=== PATIENT | male | born 1955 | race Caucasian/White ===

== ENCOUNTER 2018-06-08 13:32 | Inpatient (IN) ==
--- NOTE | 2018-06-08 20:41 | ED ---
HPI General Chief Complaint: Extremity Injury, Upper Stated Complaint: Hand Complaint/Doctor Sent Time Seen by Provider: 06/08/18 20:22 Source: patient Mode of arrival: ambulatory Limitations: no limitations History of Present Illness HPI narrative: 63-year-old [id number] white male presents emergency department with an infection to his left middle finger which occurred on Tuesday after he cut his finger with a band saw. The patient lives in [place] as well as [facility]. The patient has not been traveling to [place] over the last several days. He states that his middle finger has become increasingly painful. He states that he can barely move his hand because the pain is so severe. It has opened and started draining pus. Has become increasingly painful, red and swollen. He denies any numbness or tingling. He went to an urgent care a few hours prior to arriving here at the hospital. He was given tetanus immunization as well as a shot of clindamycin 600 mg IM. He was advised to come to the ER. He had an x-ray performed which showed no obvious fracture. No foreign body. The patient states the pain is severe. Rates it a 10/10. Worse with movement and palpation. Some relief with elevation. Patient denies any fever or chills. Positive drainage. Related Data Home Medications Medication Instructions Recorded Confirmed benazepril-hydrochlorothiazide 1 tab PO DAILY 06/08/18 06/08/18 Allergies Allergy/AdvReac Type Severity Reaction Status Date / Time No Known Allergies Allergy Verified 06/08/18 20:17 Review of Systems ROS: all other systems reviewed are negative [facility] Medical History Medical History Hypertension (Acute) Sleep apnea (Acute) Surgical History Surgical History H/O cervical spine surgery (Acute) Social History Social History Substance History: No History of Abuse Second Hand Smoke Exposure: Yes Smoking Status: Heavy tobacco smoker Tobacco Type: Cigarettes How Often Do You Have a Drink Containing Alcohol: 4 or more times a week Recent Out of Country Travel within the Last 8 Weeks: No Immunization History Tetanus Immunization: <5 Years Exam Narrative Exam Narrative: GENERAL: Well-developed, well-nourished in no acute distress. Nontoxic appearing. HEAD: Normocephalic, atraumatic. EYES: Pupils equal round and reactive. Extraocular motions intact. No scleral icterus. No injection or drainage. ENT: TMs clear without erythema. The external auditory canals clear. Nose: clear . Posterior pharynx is pink and moist. No tonsillar edema or exudate. Uvula midline. Airway patent. NECK: Trachea midline.Supple, nontender, moves head freely. No central bony tenderness or spasm. CARDIOVASCULAR: Regular rate and rhythm without murmurs, gallops, or rubs. RESPIRATORY: Clear to auscultation. Breath sounds equal bilaterally. No wheezes , rales, or rhonchi. GASTROINTESTINAL: Abdomen soft, non-tender, nondistended. No hepato-splenomegaly , or palpable masses. No guarding. EXTREMITIES: No clubbing, cyanosis, examination of the left hand reveals moderately swollen middle finger from the MCP down to the distal phalanx. He has a 1.5 cm laceration over the dorsal distal interphalangeal joint. The patient has significant pain with palpation and is unable to move the joint due to pain. He has limited range of motion at the PIP. Patient has intact sensation with good cap refill. The finger is warm, and erythematous. BACK: Nontender without deformity or crepitance. No flank tenderness. Course Initial Documented Vital Signs Temperature 98.9 F 06/08/18 13:39 Pulse Rate 67 06/08/18 13:39 Respiratory Rate 17 06/08/18 13:39 Blood Pressure 112/74 06/08/18 13:39 Pulse Oximetry 96 06/08/18 13:39 Last Documented Vital Signs Temperature 98.9 F 06/08/18 13:39 Pulse Rate 67 06/08/18 13:39 Respiratory Rate 17 06/08/18 13:39 Blood Pressure 112/74 06/08/18 13:39 Pulse Oximetry 96 06/08/18 13:39 Medical Decision Making MDM Narrative Medical decision making narrative: IV access is obtained. Patient is given vancomycin 1 g IV. Zosyn 4.5 g IV every 6 hours. Will obtain routine laboratory tests including CBC, chemistry and x-ray of the finger. I spoke with Dr. Amaya who has agreed to be the life skills consultant. He has recommended Vanco and Zosyn and he will see the patient in the morning. He wants him n.p.o. after midnight. He would like to consult put in so he will get the patient demographic. Have the patient admitted to the medicine service. I have spoken with Dr. Recio who has agreed to admit the patient and placed the consult and continue Vanco and Zosyn. Medical Screen Exam Complete: Yes Emergency Medical Condition: Yes Differential Diagnosis Differential Diagnosis: Septic joint, abscess, cellulitis, Imaging Data Radiologist's impression: Finger X-Ray 06/08/18 20:31 CONCLUSION: No acute bony abnormality. Osteoarthritis of interphalangeal joints. Mild soft tissue swelling. Discharge Plan Discharge Disposition Patient Disposition: 30 Still Patient Discharge Condition Condition: Stable Physicians Team ED Provider: Johnson Ruiz ED Midlevel Provider: Bret Elias Rxs /Orders / Referrals /Forms Prescriptions: No Action benazepril-hydrochlorothiazide 10-12.5 mg Tablet 1 tab PO DAILY RF: 0 Discharge Interventions Interventions: Vital Signs Last Done: 06/08/18 13:39 Status ED Status: With Doctor
[2018-06-08] MEDS ORDERED: Piperacil/Tazo 4.5 GM Premix 4.5 GM/100 ML BAG IV.SIG SCH (20:45)
--- NOTE | 2018-06-08 20:58 | XR ---
EXAM DATE: 06/08/2018 8:31 PM EDT AGE/SEX: 63 years / Male INDICATIONS: Left 3rd digit laceration. CLINICAL DATA: This is the patient's initial encounter. Patient reports that signs and symptoms have been present for 4 - 6 days and indicates a pain score of 10/10. MEDICAL/SURGICAL HISTORY: None. None. COMPARISON: No prior exams available for comparison. FINDINGS: Bony structures are intact and in normal alignment. There is moderate osteoarthritis of the interphal angeal joints. Mild soft tissue swelling at the third digit. CONCLUSION: No acute bony abnormality. Osteoarthritis of interphalangeal joints. Mild soft tissue swelling. Electronically signed by: Bret Martinez MD 06/08/2018 8:57 PM EDT
[2018-06-08] MEDS ORDERED: Vancomycin Inj 1 GM/200 ML PIGGYBACK IV.SIG SCH (21:00)
[2018-06-08] MEDS ORDERED: Morphine Inj 4 MG, Morphine Inj 2 MG IV.PUSH ONE ×2 (21:10)
[2018-06-08 21:42] LABS: Baso # (Auto) 0.1 th/mm3 (0.0-0.2); Baso % (Auto) 0.6 % (0.0-2.0); Eos # (Auto) 0.1 th/mm3 (0.0-0.4); Eos % (Auto) 1.2 % (0.0-4.0); Hematocrit 40.7 % (39.0-51.0); Hemoglobin 14.1 gm/dL (13.0-17.0); Lymph # (Auto) 1.4 th/mm3 (1.0-4.8); Lymph % (Auto) 13.9 % (9.0-44.0); Mean Corpuscular HGB Conc 34.7 % (32.0-36.0); Mean Corpuscular Hemoglobin 32.1 pg (27.0-34.0); Mean Corpuscular Volume 92.4 fL (80.0-100.0); Mean Platelet Volume 8.6 fL (7.0-11.0); Mono # (Auto) 0.9 th/mm3 (0.0-0.9); Mono % (Auto) 8.7 % (0.0-8.0); Neut # (Auto) 7.8 th/mm3 (1.8-7.7); Neut % (Auto) 75.6 % (16.0-70.0); Platelet Count 349 th/mm3 (150-450); Red Blood Count 4.41 mil/mm3 (4.50-5.90); Red Cell Distribution Width 13.1 % (11.6-17.2); White Blood Count 10.3 th/mm3 (4.0-11.0)
[2018-06-08 21:59] LABS: Calcium 9.2 mg/dL (8.5-10.1); Carbon Dioxide 26.3 meq/L (21.0-32.0); Potassium 3.9 meq/L (3.5-5.1)
[2018-06-08] MEDS ORDERED: Vancomycin Inj 1,000 MG in Sodium Chlor 0.9% Inj 250 ML IV.SIG ONE (22:00)
[2018-06-08] MEDS ORDERED: Acetaminophen 325 MG Tablet PO PRN (22:48)
[2018-06-08] MEDS ORDERED: Bisacodyl 10 MG Supp RECTAL PRN (22:48)
[2018-06-08] MEDS ORDERED: Vancomycin Consult Pharmacy OTHER PRN (22:53)
--- NOTE | 2018-06-08 22:54 | P.HP ---
History of Present Illness Service: [facility] Primary Care Physician: UNKNOWN History of Present Illness: 63-year-old male with a past medical history significant for hypertension presents to the emergency department for evaluation of a left middle finger that is swollen and painful. The patient reports on Tuesday he cut it on a band saw in [place] where he lives. He denies any fever/chills since that time. He reports he cleaned the wound with hydrogen peroxide but since that time he has had increased redness and pain with almost complete inability to flex or extend the finger. He denies any chest pain or shortness of breath. No abdominal pain. No nausea/vomiting/diarrhea. No lateralizing signs/ symptoms. Review of Systems All other systems reviewed negative except as stated in [facility] - History History Provided By: Patient - Medical History Medical History: Medical History (Last Reviewed 06/08/18 @ 22:51 by Lisette Recio MD) Hypertension Sleep apnea - Surgical History Surgical History: Surgical History (Last Reviewed 06/08/18 @ 22:51 by Lisette Recio MD) H/O cervical spine surgery - Family History Family History: Family History (Last Updated 06/08/18 @ 22:51 by Lisette Recio MD) Other Family history normal - Tobacco History Second Hand Smoke Exposure: Yes Tobacco Use In Past 30 Days: Yes Smoking Status: Heavy tobacco smoker Tobacco Type: Cigarettes - Alcohol History How Often Do You Have a Drink Containing Alcohol: 4 or more times a week - Substance Use History Substance History: No History of Abuse - Travel History Recent Travel Out of the Country Within the Last 8 Weeks: No - Immunization History Tetanus Immunization: <5 Years Medications and Allergies Active Medications: Active Medications Piperacillin/Tazobactam/Dextrose (Zosyn 4.5 Gm Premix) 4.5 gm in 100 mls @ 200 mls/hr IV.SIG Q6H [facility] Last Infusion: 06/08/18 21:51 Dose: Infused Vancomycin HCl 1,000 mg/ (Sodium Chloride) 250 mls @ 200 mls/hr IV.SIG ONCE ONE Stop: 06/08/18 23:14 Last Admin: 06/08/18 22:09 Dose: 200 mls/hr Allergies Allergy/AdvReac Type Severity Reaction Status Date / Time No Known Allergies Allergy Verified 06/08/18 20:17 Home Medications Medication Instructions Recorded Confirmed Type benazepril-hydrochlorothiazide 1 tab PO DAILY 06/08/18 06/08/18 History Exam Vital signs: Vital Signs 06/08/18 13:39 06/08/18 21:40 Temperature 98.9 F Pulse Rate 67 Respiratory Rate 17 18 Blood Pressure 112/74 Pulse Oximetry 96 Intake & Output 06/08/18 06/08/18 06/09/18 06:59 18:59 06:59 Intake Total 100 / 100 Balance 100 / 100 Weight 68.039 kg Intake: IV 100 / 100 Zosyn 4.5 GM Premix 4.5 gm In 100 / 100 100 ml @ 200 mls/hr IV.SIG Q6H [facility] Rx#:[id number] Narrative: Gen.: No acute distress Head: Normocephalic. Atraumatic. EENT: Pupils equal round and reactive to light. Nose without drainage. Airway intact. Throat without injection. Cardiovascular: Regular rate and rhythm. No murmurs, rubs or gallops. Respiratory: Lungs clear to auscultation bilaterally. No wheezes or rhonchi. Abdomen: Soft, nontender, nondistended. No peritoneal signs. Musculoskeletal: Third digit of the left hand swollen and erythematous with 2 cm laceration on the dorsal aspect of the finger. Unable to flex/extend finger. Skin: No obvious rashes or erythema. Neuro: Sensory and motor grossly intact. Cranial nerves II through XII grossly intact. Results - Labs CBC & Chem 7: 06/08/18 21:15 06/08/18 21:15 Labs: Laboratory Results - last 24 hr 06/08/18 06/08/18 21:15 21:15 WBC 10.3 RBC 4.41 L Hgb 14.1 Hct 40.7 MCV 92.4 MCH 32.1 MCHC 34.7 RDW 13.1 Plt Count 349 MPV 8.6 Neut % (Auto) 75.6 H Lymph % (Auto) 13.9 [place] % (Auto) 8.7 H Eos % (Auto) 1.2 Baso % (Auto) 0.6 Neut # (Auto) 7.8 H Lymph # (Auto) 1.4 [place] # (Auto) 0.9 Eos # (Auto) 0.1 Baso # (Auto) 0.1 WBC Differential . Differential Comment Auto diff final Sodium 136 Potassium 3.9 Chloride 102 Carbon Dioxide 26.3 Anion Gap 8 BUN 16 Creatinine 0.99 Estimated GFR 77 L Random Glucose 103 Calcium 9.2 - Imaging Impressions Finger X-Ray 06/08/18 20:31 CONCLUSION: No acute bony abnormality. Osteoarthritis of interphalangeal joints. Mild soft tissue swelling. Caprini VTE Risk Assessment Caprini VTE Risk Assessment: Moderate/High Risk (score >= 2) Caprini Risk Assessment Model: Point Value = 1 Point Value = 2 Point Value = 3 Point Value = 5 Age 41-60 Minor surgery BMI > 25 kg/m2 Swollen legs Varicose veins or History of unexplained or recurrent spontaneous Oral contraceptives or hormone replacement Sepsis (< 1 month) Serious lung disease, including pneumonia (< 1 month) Abnormal pulmonary function Acute myocardial infarction Congestive heart failure (< 1 month) History of inflammatory bowel disease Medical patient at bed rest Age 61-74 Arthroscopic surgery Major open surgery (> 45 min) Laparoscopic surgery (> 45 min) Malignancy Confined to bed (> 72 hours) Immobilizing plaster cast Central venous access Age >= 75 History of VTE Family history of VTE Factor V Leiden Prothrombin [id number] Lupus anticoagulant Anticardiolipin antibodies Elevated serum homocysteine Heparin-induced thrombocytopenia Other congenital or acquired thrombophilia Stroke (< 1 month) Elective arthroplasty Hip, pelvis, or leg fracture Acute spinal cord injury (< 1 month) Prophylaxis Regimen: Total Risk Factor Score Risk Level Prophylaxis Regimen 0-1 Low Early ambulation 2 Moderate Order ONE of the following: *Sequential Compression Device (SCD) *Heparin 5000 units SQ BID 3-4 Higher Order ONE of the following medications: *Heparin 5000 units SQ TID *Enoxaparin/Lovenox 40 mg SQ daily (WT < 150 kg, CrCl > 30 mL/min) *Enoxaparin/Lovenox 30 mg SQ daily (WT < 150 kg, CrCl > 10-29 mL/min) *Enoxaparin/Lovenox 30 mg SQ BID (WT < 150 kg, CrCl > 30 mL/min) AND/OR *Sequential Compression Device (SCD) 5 or more Highest Order ONE of the following medications: *Heparin 5000 units SQ TID (Preferred with Epidurals) *Enoxaparin/Lovenox 40 mg SQ daily (WT < 150 kg, CrCl > 30 mL/min) *Enoxaparin/Lovenox 30 mg SQ daily (WT < 150 kg, CrCl > 10-29 mL/min) *Enoxaparin/Lovenox 30 mg SQ BID (WT < 150 kg, CrCl > 30 mL/min) AND *Sequential Compression Device (SCD) Assessment and Plan - Plan Assessment/plan: 1. Left middle finger cellulitis Cannot rule out abscess or septic joint Hand surgery consulted, appreciate recommendations Vancomycin/Zosyn Wound culture pending 2. Hypertension Continue home medication FEN N.p.o. Electrolytes: Monitor and replete as needed Holding pharmacologic anticoagulation for possible operative intervention NS at 100 cc/hour
[2018-06-08] MEDS ORDERED: Sodium Chloride 0.9% 2 ML Flush PRN IV.FLUSH (23:02)
[2018-06-08 23:31] LABS: Activated Partial Thrombo Time 27.1 sec (24.3-30.1); Prothrombin Time 9.9 sec (9.8-11.6)
[2018-06-09] MEDS: Sod Chloride 0.9% Inj 1,000 ML IV.CONT SCH ×3 (00:53→11:15)
[2018-06-09] MEDS: Morphine Inj 4 MG/ML Vial IV.PUSH PRN ×4 (02:12→19:58)
[2018-06-09] MEDS: Piperacil/Tazo 3.375 GM Premix 50 ML IV.SIG SCH ×4 (04:03→21:19)
[2018-06-09 04:21] LABS: Baso % (Auto) 0.5 % (0.0-2.0); Eos # (Auto) 0.1 th/mm3 (0.0-0.4); Eos % (Auto) 1.4 % (0.0-4.0); Hematocrit 35.5 % (39.0-51.0); Hemoglobin 12.1 gm/dL (13.0-17.0); Lymph # (Auto) 1.4 th/mm3 (1.0-4.8); Lymph % (Auto) 15.8 % (9.0-44.0); Mean Corpuscular HGB Conc 34.1 % (32.0-36.0); Mean Corpuscular Hemoglobin 31.8 pg (27.0-34.0); Mean Corpuscular Volume 93.2 fL (80.0-100.0); Mean Platelet Volume 8.1 fL (7.0-11.0); Mono # (Auto) 0.9 th/mm3 (0.0-0.9); Mono % (Auto) 10.7 % (0.0-8.0); Neut # (Auto) 6.2 th/mm3 (1.8-7.7); Neut % (Auto) 71.6 % (16.0-70.0); Platelet Count 297 th/mm3 (150-450); Red Blood Count 3.81 mil/mm3 (4.50-5.90); Red Cell Distribution Width 13.3 % (11.6-17.2); White Blood Count 8.7 th/mm3 (4.0-11.0)
[2018-06-09 04:41] LABS: Calcium 8.6 mg/dL (8.5-10.1); Carbon Dioxide 30.8 meq/L (21.0-32.0); Potassium 4.4 meq/L (3.5-5.1)
[2018-06-09] MEDS ORDERED: Non-Formulary Drug (Benazepril-Hydrochlorothiazide [Benazepril-Hydrochlorothiazide] 1 TAB) PO SCH (09:00)
[2018-06-09] MEDS: Lisinopril 10 MG Tablet PO SCH ×2 (09:02→09:05)
[2018-06-09] MEDS: hydroCHLOROthiazide 25 MG Tablet PO SCH ×2 (09:03→09:04)
[2018-06-09] MEDS: Sodium Chloride 0.9% 2 ML Flush BID IV.FLUSH SCH ×2 (09:03→19:59)
[2018-06-09] MEDS: Senna/Docusate Sodium 8.6/50 MG Tablet PO SCH ×3 (09:03→20:00)
--- NOTE | 2018-06-09 10:01 | P.PN ---
Subjective Interval history: Follow-up for left third finger wound with cellulitis. Patient reports continued diffuse erythema, edema, and pain throughout the left third digit. He states he may have had some mild improvement in the range of motion of the finger, however still unable to completely flex or extend the finger. Denies any lymphangitis up the arm. Denies any fevers or chills overnight. Denies any other medical complaints at this time. He wants to eat. Physical Exam Vital signs: Vital Signs 06/08/18 13:39 06/08/18 21:40 06/09/18 00:00 Temperature 98.9 F 97.7 F Pulse Rate 67 72 Respiratory Rate 17 18 18 Blood Pressure 112/74 131/79 Pulse Oximetry 96 97 06/09/18 03:52 06/09/18 07:44 Temperature 98.1 F 98.4 F Pulse Rate 59 L 65 Respiratory Rate 16 20 Blood Pressure 114/75 104/62 Pulse Oximetry 98 96 Intake & Output 06/08/18 06/09/18 06/09/18 18:59 06:59 18:59 Intake Total 400 / 400 50 / 50 Balance 400 / 400 50 / 50 Weight 68.039 kg 68.039 kg Intake: IV 400 / 400 50 / 50 Zosyn 3.375 GM Premix 50 ML @ 50 / 50 50 / 50 100 mls/hr IV.SIG Q6H [facility] Rx#: [id number] Zosyn 4.5 GM Premix 4.5 gm In 100 / 100 100 ml @ 200 mls/hr IV.SIG Q6H [facility] Rx#:[id number] Vancomycin Inj 1,000 MG In NS 250 / 250 Inj 250 ML @ 200 mls/hr IV.SIG ONCE ONE Rx#:[id number] Oral 0 / 0 Other: # Voids 1 Weight On Admission 68.039 kg Narrative: GENERAL: Well-nourished, well-developed middle-age male patient in [facility]. SKIN: Warm and dry. No rash.Third digit of the left hand swollen and erythematous with 2 cm laceration on the dorsal aspect of the finger. HEENT: Normocephalic. Atraumatic. Pupils equal and round. Mucous membranes pink and moist. CARDIOVASCULAR: Regular rate and rhythm. No murmur appreciated. RESPIRATORY: No accessory muscle use. Clear to auscultation. Breath sounds equal bilaterally. GASTROINTESTINAL: Abdomen soft, non-tender, nondistended. Normoactive bowel sounds x4. MUSCULOSKELETAL: No obvious deformities. Extremities without clubbing, cyanosis , or edema. Unable to flex/extend left 3rd digit. NEUROLOGICAL: Awake and alert. No obvious cranial nerve deficits. Motor grossly within normal limits. Moving all extremities spontaneously. Normal speech. PSYCHIATRIC: Appropriate mood and affect; insight and judgment normal. Results - Labs CBC & Chem 7: 06/09/18 03:58 06/09/18 03:58 Laboratory Results - last 24 hr 06/08/18 06/08/18 06/08/18 21:15 21:15 23:10 WBC 10.3 RBC 4.41 L Hgb 14.1 Hct 40.7 MCV 92.4 MCH 32.1 MCHC 34.7 RDW 13.1 Plt Count 349 MPV 8.6 Neut % (Auto) 75.6 H Lymph % (Auto) 13.9 [place] % (Auto) 8.7 H Eos % (Auto) 1.2 Baso % (Auto) 0.6 Neut # (Auto) 7.8 H Lymph # (Auto) 1.4 [place] # (Auto) 0.9 Eos # (Auto) 0.1 Baso # (Auto) 0.1 WBC Differential . Differential Comment Auto diff final PT 9.9 INR 1.0 APTT 27.1 Sodium 136 Potassium 3.9 Chloride 102 Carbon Dioxide 26.3 Anion Gap 8 BUN 16 Creatinine 0.99 Estimated GFR 77 L Random Glucose 103 Calcium 9.2 06/09/18 06/09/18 03:58 03:58 WBC 8.7 RBC 3.81 L Hgb 12.1 L D Hct 35.5 L MCV 93.2 MCH 31.8 MCHC 34.1 RDW 13.3 Plt Count 297 MPV 8.1 Neut % (Auto) 71.6 H Lymph % (Auto) 15.8 [place] % (Auto) 10.7 H Eos % (Auto) 1.4 Baso % (Auto) 0.5 Neut # (Auto) 6.2 Lymph # (Auto) 1.4 [place] # (Auto) 0.9 Eos # (Auto) 0.1 Baso # (Auto) 0.0 WBC Differential . Differential Comment Auto diff final PT INR APTT Sodium 140 Potassium 4.4 Chloride 104 Carbon Dioxide 30.8 Anion Gap 5 BUN 14 Creatinine 1.01 Estimated GFR 75 L Random Glucose 109 H Calcium 8.6 Microbiology 06/08/18 21:25 Abscess - Finger Gram Stain - Final - Imaging Impressions Finger X-Ray 06/08/18 20:31 CONCLUSION: No acute bony abnormality. Osteoarthritis of interphalangeal joints. Mild soft tissue swelling. Assessment and Plan - Plan 63-year-old male with a past medical history significant for hypertension presents to the emergency department for evaluation of a left middle finger that is swollen and painful, after injury with a saw. Left third digit wound with cellulitis: acute. Afebrile, no leukocytosis, however on exam left third digit with extensive erythema/edema/pain with very limited ROM -Finger x-ray reviewed, shows mild soft tissue swelling, no acute bony abnormality -Patient has updated tetanus vaccine -Wound culture pending -Started on antibiotics with IV Zosyn and IV Vanco with pharmacy consult -Pain control with Tylenol, [place] prn, IV morphine prn breakthrough pain -Start on IV Toradol for inflammation -Consult hand surgery, appreciate recommendations Hypertension: Chronic -Continue patient's LALITA and HCTZ -Monitor BP, adjust antihypertensives as needed DVT Prophylaxis: patient is ambulatory; holding chemical prophylaxis incase surgery is indicated
[2018-06-09] MEDS: Vancomycin Inj 1,000 MG in Sodium Chlor 0.9% Inj 250 ML IV.SIG SCH ×2 (11:15→23:25)
[2018-06-09] MEDS ORDERED: Lidocaine 1%/Epinephrine 1:100,000 Inj 30 ML Vial ONE (12:02)
--- NOTE | 2018-06-09 14:04 | P.CON ---
History of Present Illness Service: Hand surgery Consult date: 06/09/18 Primary Care Provider: UNKNOWN Chief Complaint: Left middle finger cellulitis History of Present Illness: 63-year-old male with a past medical history significant for hypertension presents to the emergency department for evaluation of a left middle finger that is swollen and painful. The patient reports on Tuesday he cut it on a band saw in [place] where he lives. He denies any fever/chills since that time. He reports he cleaned the wound with hydrogen peroxide but since that time he has had increased redness and pain with almost complete inability to flex or extend the finger. He denies any chest pain or shortness of breath. No abdominal pain. No nausea/vomiting/diarrhea. Patient endorses that the finger is slightly improved since admission yesterday. He endorses near full active range of motion except for his middle finger DIP. Review of Systems All other systems reviewed negative except as stated in HPI PMFSH - History History Provided By: Patient - Medical History Medical History: Medical History (Last Reviewed 06/08/18 @ 22:51 by Lisette Recio MD) Hypertension Sleep apnea - Surgical History Surgical History: Surgical History (Last Reviewed 06/08/18 @ 22:51 by Lisette Recio MD) H/O cervical spine surgery - Family History Family History: Family History (Last Updated 06/08/18 @ 22:51 by Lisette Recio MD) Other Family history normal - Tobacco History Second Hand Smoke Exposure: Yes Tobacco Use In Past 30 Days: Yes Smoking Status: Heavy tobacco smoker Tobacco Type: Cigarettes - Alcohol History How Often Do You Have a Drink Containing Alcohol: 4 or more times a week - Substance Use History Substance History: No History of Abuse - Travel History Recent Travel Out of the Country Within the Last 8 Weeks: No - Immunization History Tetanus Immunization: <5 Years Medication list reviewed No known drug allergies PMF - History History Provided By: Patient - Medical History Medical History: Medical History (Last Reviewed 06/08/18 @ 22:51 by Lisette Recio MD) Hypertension Sleep apnea - Surgical History Surgical History: Surgical History (Last Reviewed 06/08/18 @ 22:51 by Lisette Recio MD) H/O cervical spine surgery - Family History Family History: Family History (Last Updated 06/08/18 @ 22:51 by Lisette Recio MD) Other Family history normal - Tobacco History Second Hand Smoke Exposure: Yes Tobacco Use In Past 30 Days: Yes Smoking Status: Current every day smoker Tobacco Type: Cigarettes - Alcohol History How Often Do You Have a Drink Containing Alcohol: 4 or more times a week - Substance Use History Substance History: No History of Abuse - Travel History Recent Travel in the [place] Within the Last 8 Weeks: Yes Recent Travel Out of the Country Within the Last 8 Weeks: No - Immunization History Tetanus Immunization: <5 Years Medications and Allergies Active Medications: Active Medications Acetaminophen (Tylenol) 650 mg PO Q4H PRN PRN Reason: headache/fever/pain1-4 Hydrocodone Bitart/Acetaminophen ([place] 7.5/325) 1 tab PO Q4H PRN PRN Reason: pain scale 5 to 10 Al Hydroxide/Mg Hydroxide (Milk Of Magnesia Liq) 30 ml PO Q12H PRN PRN Reason: Mild Constipation Bisacodyl (Dulcolax Supp) 10 mg RECTAL DAILY PRN PRN Reason: SEVERE CONSITIPATION Hydrochlorothiazide (Hydrodiuril) 12.5 mg PO DAILY [facility] Last Admin: 06/09/18 09:04 Dose: Not Given Sodium Chloride (Ns Inj) 1,000 mls @ 100 mls/hr IV.CONT .Q10H [facility] Last Admin: 06/09/18 11:15 Dose: 100 mls/hr Piperacillin/Tazobactam/Dextrose (Zosyn 3.375 Gm Premix) 50 mls @ 100 mls/hr IV.SIG Q6H [facility] Last Infusion: 06/09/18 09:35 Dose: Infused Vancomycin HCl 1,000 mg/ (Sodium Chloride) 250 mls @ 250 mls/hr IV.SIG Q12H [facility] Last Infusion: 06/09/18 12:23 Dose: Infused Lactulose (Lactulose Liq) 30 ml PO DAILY PRN PRN Reason: SEVERE CONSITIPATION Lisinopril (Prinivil) 10 mg PO DAILY [facility] Last Admin: 06/09/18 09:05 Dose: Not Given Miscellaneous Information ([facility] Ordered Lab Info) 0 each OTHER ONCE ONE Stop: 06/10/18 10:46 Morphine Sulfate (Morphine Inj) 4 mg IV.PUSH Q4H PRN PRN Reason: BREAKTHROUGH PAIN Last Admin: 06/09/18 11:23 Dose: 4 mg Mupirocin (Bactroban 2% Oint) 1 applicatio TOPICAL DAILY [facility] Ondansetron HCl (Zofran Inj) 4 mg IV.PUSH Q6H PRN PRN Reason: NAUSEA OR VOMITING Pharmacy Profile Note (Vancomycin Consult Pharmacy) 1 each OTHER UNSCH PRN PRN Reason: Pharmacy to dose Senna/Docusate Sodium (Annelise-Colace) 1 tab PO BID [facility] Last Admin: 06/09/18 09:06 Dose: Not Given Sennosides (Senokot) 17.2 mg PO Q12H PRN PRN Reason: Moderate Constipation Sodium Chloride (Ns Flush) 2 ml IV.FLUSH BID [facility] Last Admin: 06/09/18 09:03 Dose: 2 ml Sodium Chloride (Ns Flush) 2 ml IV.FLUSH PRN PRN PRN Reason: FLUSH AFTER USING IV ACCESS Allergies Allergy/AdvReac Type Severity Reaction Status Date / Time No Known Allergies Allergy Verified 06/08/18 20:17 Home Medications Medication Instructions Recorded Confirmed Type benazepril-hydrochlorothiazide 1 tab PO DAILY 06/08/18 06/08/18 History Physical Exam Vital signs: Vital Signs 06/08/18 21:40 06/09/18 00:00 06/09/18 03:52 Temperature 97.7 F 98.1 F Pulse Rate 72 59 L Respiratory Rate 18 18 16 Blood Pressure 131/79 114/75 Pulse Oximetry 97 98 06/09/18 07:44 06/09/18 08:00 06/09/18 11:37 Temperature 98.4 F 98.2 F Pulse Rate 65 67 Respiratory Rate 20 20 18 Blood Pressure 104/62 118/74 Pulse Oximetry 96 97 Intake & Output 06/08/18 06/09/18 06/09/18 18:59 06:59 18:59 Intake Total 400 / 400 1300 / 1300 Balance 400 / 400 1300 / 1300 Weight 68.039 kg 68.039 kg Intake: IV 400 / 400 1300 / 1300 NS Inj 1,000 ML @ 100 mls/hr IV 1000 / 1000 .CONT .Q10H [facility] Rx#:[id number] Zosyn 3.375 GM Premix 50 ML @ 50 / 50 50 / 50 100 mls/hr IV.SIG Q6H [facility] Rx#: [id number] Zosyn 4.5 GM Premix 4.5 gm In 100 / 100 100 ml @ 200 mls/hr IV.SIG Q6H [facility] Rx#:[id number] Vancomycin Inj 1,000 MG In NS 250 / 250 250 / 250 Inj 250 ML @ 250 mls/hr IV.SIG Q12H [facility] Rx#:[id number] Oral 0 / 0 Other: # Voids 1 Date of Last Bowel Movement 06/08/18 Weight On Admission 68.039 kg Narrative: No apparent anxiety moist mucous membranes PERRLA skin without rash respirations nonlabored moves all 4 extremities to command digits warm well perfused Left middle finger distal 3 cm erythematous Moderately tender Sensation intact light touch distally Able to passively range DIP without significant pain 1 cm longitudinally oriented to dorsal laceration between the eponychial fold and DIP joint Questionable fluctuance appreciated on exam Assessment and Plan - Assessment (1) Cellulitis of finger of left hand Code(s): L03.012 - Cellulitis of left finger Status: Acute - Plan 63-year-old male with left middle finger laceration with subsequent cellulitis and questionable fluctuance Risk benefits alternative treatments discussed All questions answered and the patient expressed understanding Patient elected to assume the risks of exploration of his laceration Informed consent obtained Digital block performed with 1% lidocaine with epinephrine Under sterile conditions, laceration was reopened with minimal purulence Wound explored, copiously irrigated, and painted with Betadine Well-tolerated Please dressed with mupirocin ointment (2%) and Xeroform gauze changed twice daily Agree with IV antibiotics for at least 24 hours more Please call with questions
[2018-06-09] MEDS: Ketorolac Inj 30 MG/ML (IVP) Vial IV.PUSH SCH (18:45)
[2018-06-10] MEDS: Ketorolac Inj 30 MG/ML (IVP) Vial IV.PUSH SCH ×3 (01:58→11:33)
[2018-06-10] MEDS: Sod Chloride 0.9% Inj 1,000 ML IV.CONT SCH ×2 (02:05→04:00)
[2018-06-10] MEDS: Piperacil/Tazo 3.375 GM Premix 50 ML IV.SIG SCH ×2 (04:00→11:35)
[2018-06-10 08:13] VITALS: BP 136/95; PULSE 58; RESP 16; TEMP 98.2; O2SAT 100
--- NOTE | 2018-06-10 09:48 | P.PN ---
Subjective Interval history: Follow-up for left third finger wound with cellulitis. The patient is status post bedside I&D by hand surgery Dr. Chisholm yesterday 06/09. Patient reports significant improvement of the pain, edema, and erythema. He reports increased range of motion of the finger. Denies any fevers or chills. Denies any significant drainage on the dressing. He wants to go home. He has no other medical complaints at this time. Physical Exam Vital signs: Vital Signs 06/09/18 11:37 06/09/18 15:47 06/09/18 20:00 Temperature 98.2 F 98.1 F 98.1 F Pulse Rate 67 63 81 Respiratory Rate 19 Blood Pressure 118/74 110/62 142/79 H Pulse Oximetry 97 97 98 06/10/18 00:00 06/10/18 04:00 06/10/18 08:00 Temperature 98.1 F 97.7 F 98.2 F Pulse Rate 61 60 58 L Respiratory Rate 16 Blood Pressure 101/64 113/71 136/95 H Pulse Oximetry 98 92 L 100 Intake & Output 06/09/18 06/10/18 06/10/18 18:59 06:59 18:59 Intake Total 1300 / 1300 2350 / 2350 Balance 1300 / 1300 2350 / 2350 Weight 68.03 kg Intake: IV 1300 / 1300 1400 / 1400 NS Inj 1,000 ML @ 100 mls/hr IV 1000 / 1000 1000 / 1000 .CONT .Q10H [facility] Rx#:[id number] Zosyn 3.375 GM Premix 50 ML @ 50 / 50 150 / 150 100 mls/hr IV.SIG Q6H [facility] Rx#: [id number] Vancomycin Inj 1,000 MG In NS 250 / 250 250 / 250 Inj 250 ML @ 250 mls/hr IV.SIG Q12H [facility] Rx#:[id number] Oral 950 / 950 Other: # Voids 3 Date of Last Bowel Movement 06/08/18 06/08/18 Narrative: GENERAL: Well-nourished, well-developed middle-age male patient in [facility]. Ambulating the hallway. SKIN: Warm and dry. No rash. Left middle finger with mild erythema/edema, a 2 cm laceration, and now surgical incision, overall much improved compared to yesterday. HEENT: Normocephalic. Atraumatic. Pupils equal and round. Mucous membranes pink and moist. CARDIOVASCULAR: Regular rate and rhythm. No murmur appreciated. RESPIRATORY: No accessory muscle use. Clear to auscultation. Breath sounds equal bilaterally. MUSCULOSKELETAL: No obvious deformities. Extremities without clubbing, cyanosis , or edema. Increased ROM of left third digit today. NEUROLOGICAL: Awake and alert. No obvious cranial nerve deficits. Motor grossly within normal limits. Moving all extremities spontaneously. Normal speech. PSYCHIATRIC: Appropriate mood and affect; insight and judgment normal. Results - Labs CBC & Chem 7: 06/09/18 03:58 06/09/18 03:58 Microbiology 06/08/18 21:25 Abscess - Finger Gram Stain - Final 06/08/18 21:25 Abscess - Finger Wound Culture - Final - Imaging Finger X-Ray 06/08/18 20:31 CONCLUSION: No acute bony abnormality. Osteoarthritis of interphalangeal joints. Mild soft tissue swelling. - Procedures bedside I&D by hand surgery Dr. Chisholm 06/09 Assessment and Plan - Plan 63-year-old male with a past medical history significant for hypertension presents to the emergency department for evaluation of a left middle finger that is swollen and painful, after injury with a saw. Left third digit wound with cellulitis: acute. Afebrile, no leukocytosis, however on exam left third digit with extensive erythema/edema/pain with very limited ROM -Finger x-ray reviewed, shows mild soft tissue swelling, no acute bony abnormality -Patient has updated tetanus vaccine -Started on antibiotics with IV Zosyn and IV Vanco with pharmacy consult -Pain control with Tylenol, [place] prn, IV morphine prn breakthrough pain -Given IV Toradol for inflammation -Wound culture with heavy growth normal oral bailey -Consult hand surgery, performed bedside I&D on 06/09 -Symptoms much improved, patient with increased range of motion, decreased erythema/edema, afebrile, stable for discharge -Discharged with clindamycin prescription Hypertension: Chronic -Continue patient's LALITA and HCTZ -Monitor BP, adjust antihypertensives as needed DVT Prophylaxis: patient is ambulatory Discharge Planning: Discharge patient to home Condition on discharge: Stable Heart Healthy Diet as tolerated Ad Zohreh activity Rx written: Clindamycin 450mg q8h x7days Follow-up with primary care physician and hand surgeon if symptoms do not improve on abx
[2018-06-10] MEDS ORDERED: Pharmacy Ordered Lab Info OTHER ONE (10:45)
[2018-06-10] MEDS: hydroCHLOROthiazide 25 MG Tablet PO SCH (11:33)
[2018-06-10] MEDS: Senna/Docusate Sodium 8.6/50 MG Tablet PO SCH (11:34)
[2018-06-10] MEDS: Sodium Chloride 0.9% 2 ML Flush BID IV.FLUSH SCH (11:34)
[2018-06-10] MEDS: Lisinopril 10 MG Tablet PO SCH (11:34)
== END 2018-06-10 11:01 | disposition home or self-care (01) ==
LOC: NEDA 13:32 → NEPD 13:32 → NEPHCDU 23:23
PROVIDERS: ADMIT Hospitalist; ATTEND Hospitalist